=== PATIENT | male | born 1985 | race African-American/Black ===

== ENCOUNTER 2018-09-11 15:55 | Emergency (ER) | payer MEDICAID ==
[~2018-09-11] VITALS: Ht 170.2 cm; Wt 80.0 kg
[2018-09-11 15:57] VITALS: BP 157/84
== END 2018-09-11 16:47 | disposition home or self-care (01) ==
LOC: ED 16:21
DX: B34.9 Viral infection, unspecified (principal); J45.909 Unspecified asthma, uncomplicated; F17.200 Nicotine dependence, unspecified, uncomplicated
CPT/HCPCS: 71046; 93005; 99284

== ENCOUNTER 2019-01-18 14:30 | Emergency (ER) | payer MEDICAID ==
[~2019-01-18] VITALS: Ht 170.2 cm; Wt 77.5 kg
--- NOTE | 2019-01-18 14:45 | NUR ---
PT BIB [facility] WITH SYNCOPAL EPISODE WITH NAUSEA PRIOR. PT REPORTS NOT EATING FOR 3 DAYS. PT DENIES CP, SOB, HEAD, OR NECK PAIN. PT ON MONITOR. PT REQUESTING TO EAT AND OK PER DR. CAMILO.
[2019-01-18 15:11] LABS: MEAN CORPUSCULAR HGB CONC 33.2 g/dL (33.2-36.2); MEAN CORPUSCULAR VOLUME 93.2 fL (81-97); MEAN PLATELET VOLUME 8.8 fL (7.4-10.4); PLATELET COUNT 250 x10^3/uL (130-400); RED BLOOD COUNT 4.46 x10^6/uL (4.38-5.82); RED CELL DISTRIBUTION WIDTH 13.7 % (9.4-14.8)
[2019-01-18 15:17] VITALS: BP 110/55
[2019-01-18 15:22] LABS: ANION GAP 3 mmol/L (5-15); CALCIUM 8.7 mg/dL (8.5-10.1); CHLORIDE 108 mmol/L (98-107); CREATININE 1.27 mg/dL (0.7-1.3)
[2019-01-18 15:42] LABS: BASOPHILS # (AUTO) 0.05 x10^3/uL (0-0.1); BASOPHILS % (AUTO) 0 % (0-1); EOSINOPHILS # (AUTO) 0.02 x10^3/uL (0-0.4); EOSINOPHILS % (AUTO) 0 % (1-7); LYMPHOCYTES # (AUTO) 1.59 x10^3/uL (1-3.4); LYMPHOCYTES % (AUTO) 11 % (22-44); MD SCAN; MONOCYTES # (AUTO) 1.54 x10^3/uL (0.2-0.8); MONOCYTES % (AUTO) 11 % (2-9); NEUTROPHILS # (AUTO) 11.25 x10^3/uL (1.8-6.8); NEUTROPHILS % (AUTO) 78 % (42-75)
--- NOTE | 2019-01-18 15:42 | NUR ---
DIONN GIVEN CRACKERS AND JUICE, AWAITING MEAL TRAY
--- NOTE | 2019-01-18 16:00 | NUR ---
PATIENT PLACED IN RECHECK
--- NOTE | 2019-01-18 16:18 | NUR ---
MEAL TRAY RE-ORDERED
== END 2019-01-18 16:26 | disposition home or self-care (01) ==
LOC: ED 15:26
DX: R55 Syncope and collapse (principal); J00 Acute nasopharyngitis [common cold]; F17.200 Nicotine dependence, unspecified, uncomplicated; J45.909 Unspecified asthma, uncomplicated
CPT/HCPCS: 36415; 80048; 85025; 93005; 99284